=== PATIENT | female | born 1980 | race Caucasian/White ===

== ENCOUNTER 2018-01-20 18:54 | Emergency (ER) | payer MEDICAID ==
[~2018-01-20 18:54] MED LIST: ACET-1966 PO; BEN100 PO; DOXY150T6 PO; HYDR-3083 PO; IBUP-56 PO; IBUP800T37 PO; LOR5/325 PO; MULT-1335; ONDA4TAB PO; OXYC-865 PO; PRE20 PO; PRED-314 PO
[2018-01-20] MEDS ORDERED: NS(*) 0.9% 1000 ML BAG 1,000 ML IV ONE (19:13)
[2018-01-20] MEDS ORDERED: MORPHINE 2 MG/ML SYR IVP ONE (19:15)
[2018-01-20] MEDS ORDERED: ONDANSETRON 4 MG/2 ML VIAL IVP ONE (19:15)
[2018-01-20 19:26] LABS: PLATELET COUNT, AUTOMATED 279 K/uL (150-450)
[2018-01-20] MEDS ORDERED: IOPAMIDOL 76% 75 ML INFUS BTL 75 ML ONE (19:35)
--- NOTE | 2018-01-20 19:53 | RADIOLOGY IMAGING REPORT ---
FACILITY: [facility] - [place] PATIENT NAME: Armida Thrasher : 1980 MR: [id number] V: [id number] EXAM DATE: ORDERING PHYSICIAN: VERITO MERRITT TECHNOLOGIST: Location: [facility] Patient: Armdia Thrasher : 1980 Visit/Account:[id number] Date of Sevice: 01/20/2018 2 VIEWS CHEST INDICATION: Chest and abdomen pain COMPARISON: 10/19/2011. FINDINGS: Cardiomediastinal silhouette and pulmonary vessels within normal limits. There is no focal infiltrate or lobar consolidation. There is no pneumothorax or pleural effusion. No nodule. Upper abdomen is unremarkable. No acute bony abnormality. IMPRESSION: 1. No acute cardiopulmonary process. Report Dictated By: Anthony Benitez at 01/20/2018 7:47 PM Report E-Signed By: Anthony Benitez at 01/20/2018 7:49 PM WSN:[id number]
--- NOTE | 2018-01-20 20:12 | ER Report ---
History and Physical Time Seen By MD: 19:05 Hx. of Stated Complaint: LEFT SIDED CHEST PAIN FOR 2 DAYS HPI/ROS CHIEF COMPLAINT: Chest pain HISTORY OF PRESENT ILLNESS: 37-year-old female patient presents to emergency room with complaint of left-sided chest pain. Patient states this been going on for the last 2 days. Patient states that she was sleeping and woke up with pain in the left side of the chest. She states pain is worse when she takes a deep breath. She states she's not had any fevers, chills, vomiting or diarrhea. Patient states she has been nauseated. Patient states that she has not taken any medication for this. She states that there is nothing seems to make the pain better or worse. She states that she does not have any shortness of breath. REVIEW OF SYSTEMS: Respiratory: No cough, no dyspnea. Cardiovascular: As noted above. Gastrointestinal: No vomiting, no abdominal pain. Musculoskeletal: No back pain. Allergies: Coded Allergies: amoxicillin (Unverified Allergy, Mild, hives, 01/20/18) okay with cephalosporins latex (Unverified Allergy, Mild, rash, 01/20/18) Home Meds Active Scripts Hydrocodone Bit/Acetaminophen (HYDROCODON-ACETAMINOPHEN 5-325) 1 Each Tablet, 1 EACH PO Q4-6H PRN for PAIN, #12 TAB Prov:VERITO MERRITT 01/20/18 Discontinued Reported Medications Ibuprofen (IBUPROFEN) 200 Mg Tablet, 1 TAB PO PRN, TAB 09/29/16 Acetaminophen (TYLENOL) 325 Mg Tablet, 325 MG PO PRN, TAB 09/29/16 Discontinued Scripts Ondansetron (ZOFRAN ODT) 4 Mg Tab.rapdis, 4 MG PO Q6H PRN for NAUSEA/VOMITING, #20 TAB.[place] 0 Refills Prov:ASIA DONAHUE MD 12/23/16 Hydrocodone Bit/Acetaminophen (HYDROCODON-ACETAMINOPHEN 5-325) 1 Each Tablet, 1 EACH PO Q4H PRN for PAIN, #12 TAB 0 Refills Prov:ASIA DONAHUE MD 12/23/16 Past Medical/Surgical History Patient has a past medical history of smoking, precancerous lesions removed from cervix, left arm fracture, or alcohol use. Patient has surgical history of hysterectomy, tubal ligation. Reviewed Nurses Notes: Yes Hx Smoking: Yes (1ppd x 12 yrs, trying to quit) Smoking Status: Current: Every Day Smoker Hx Substance Use Disorder: No Hx Alcohol Use: Yes (rare 3 x yr) Constitutional Vital Sign - Last 24 Hours 01/20/18 01/20/18 01/20/18 01/20/18 18:56 18:57 19:00 19:09 Temp 97.9 Pulse 98 94 Resp 20 9 B/P (MAP) 181/106 (131) 181/106 158/100 (119) Pulse Ox 95 O2 Delivery Room Air 01/20/18 01/20/18 01/20/18 01/20/18 19:15 19:24 19:30 19:45 Pulse 84 Resp 11 B/P (MAP) 127/102 (110) 132/94 (107) 146/96 (113) Pulse Ox 95 01/20/18 01/20/18 01/20/18 01/20/18 19:50 20:05 20:20 20:30 Pulse 100 95 97 Resp 9 12 16 B/P (MAP) 126/80 (95) Pulse Ox 92 94 92 01/20/18 20:50 Pulse 82 Resp 24 Pulse Ox 93 Physical Exam General Appearance: The patient is alert, has no immediate need for airway protection and no current signs of toxicity. Respiratory: Chest is non tender, lungs are clear to auscultation. Cardiac: regular rate and rhythm Gastrointestinal: Abdomen is soft and tender in the left upper quadrant, no masses, bowel sounds normal. Musculoskeletal: Neck: Neck is supple and non tender. Extremities have full range of motion and are non tender. Skin: No rashes or lesions. DIFFERENTIAL DIAGNOSIS: After history and physical exam differential diagnosis was considered for abdominal pain including but not limited to appendicitis, cholecystitis, gastritis and urinary tract infection. Medical Decision Making Data Points Result Diagram: 01/20/18190901/20/181909 Laboratory Hematology Test 01/20/18 19:10 01/20/18 20:00 Red Blood Count 5.14 M/uL (4.17-5.56) Mean Corpuscular Volume 91.3 fL (80.0-96.0) Mean Corpuscular Hemoglobin 32.5 pg (26.0-33.0) Mean Corpuscular Hemoglobin Concent 35.6 g/dL (32.0-36.0) Red Cell Distribution Width 13.5 % (11.5-14.5) Mean Platelet Volume 9.2 fL (7.2-11.1) Neutrophils (%) (Auto) 51.3 % (39.4-72.5) Lymphocytes (%) (Auto) 37.5 % (17.6-49.6) Monocytes (%) (Auto) 8.0 % (4.1-12.4) Eosinophils (%) (Auto) 2.0 % (0.4-6.7) Basophils (%) (Auto) 1.2 % (0.3-1.4) Nucleated RBC Relative Count (auto) 0.0 /100WBC Neutrophils # (Auto) 7.0 K/uL (2.0-7.4) Lymphocytes # (Auto) 5.1 K/uL (1.3-3.6) Monocytes # (Auto) 1.1 K/uL (0.3-1.0) Eosinophils # (Auto) 0.3 K/uL (0.0-0.5) Basophils # (Auto) 0.2 K/uL (0.0-0.1) Nucleated RBC Absolute Count (auto) 0.01 K/uL Sodium Level 137 mmol/L (137-145) Potassium Level 3.9 mmol/L (3.5-5.0) Chloride Level 103 mmol/L (98-107) Carbon Dioxide Level 24 mmol/L (22-31) Blood Urea Nitrogen 13 mg/dl (7-18) Creatinine 0.60 mg/dl (0.52-1.04) Glomerular Filtration Rate Calc > 60.0 Random Glucose 88 mg/dl (75-110) Calcium Level 9.0 mg/dl (8.4-10.2) Total Bilirubin 0.6 mg/dl (0.2-1.3) Aspartate Amino Transf (AST/SGOT) 32 U/L (0-35) Alanine Aminotransferase (ALT/SGPT) 39 U/L (0-56) Alkaline Phosphatase 64 U/L (0-126) Troponin I < 0.012 ng/ml Total Protein 7.3 g/dl (6.3-8.2) Albumin 4.1 g/dl (3.5-5.0) Urine Color Yellow Urine Clarity Clear Urine pH 5.0 pH (4.8-9.5) Urine Specific [place] 1.034 Urine Protein Negative mg/dL (NEGATIVE) Urine Glucose (UA) Negative mg/dL (NEGATIVE) Urine Ketones Negative mg/dL (NEGATIVE) Urine Blood Negative (NEGATIVE) Urine Nitrite Negative (NEGATIVE) Urine Bilirubin Negative (NEGATIVE) Urine Urobilinogen Negative mg/dL (0.2-1.9) Urine Leukocyte Esterase Negative (NEGATIVE) Urine RBC None /HPF (0-2/HPF) Urine WBC <1 /HPF (0-5/HPF) Urine Squamous Epithelial Cells Many /LPF (</=FEW) Urine Bacteria Negative /HPF (NONE-FEW) Urine Mucus None /HPF (NONE-FEW) Chemistry Test 01/20/18 19:10 01/20/18 20:00 White Blood Count 13.6 k/uL (4.5-11.0) Red Blood Count 5.14 M/uL (4.17-5.56) Hemoglobin 16.7 g/dL (12.0-16.0) Hematocrit 46.9 % (34.0-47.0) Mean Corpuscular Volume 91.3 fL (80.0-96.0) Mean Corpuscular Hemoglobin 32.5 pg (26.0-33.0) Mean Corpuscular Hemoglobin Concent 35.6 g/dL (32.0-36.0) Red Cell Distribution Width 13.5 % (11.5-14.5) Platelet Count 279 K/uL (150-450) Mean Platelet Volume 9.2 fL (7.2-11.1) Neutrophils (%) (Auto) 51.3 % (39.4-72.5) Lymphocytes (%) (Auto) 37.5 % (17.6-49.6) Monocytes (%) (Auto) 8.0 % (4.1-12.4) Eosinophils (%) (Auto) 2.0 % (0.4-6.7) Basophils (%) (Auto) 1.2 % (0.3-1.4) Nucleated RBC Relative Count (auto) 0.0 /100WBC Neutrophils # (Auto) 7.0 K/uL (2.0-7.4) Lymphocytes # (Auto) 5.1 K/uL (1.3-3.6) Monocytes # (Auto) 1.1 K/uL (0.3-1.0) Eosinophils # (Auto) 0.3 K/uL (0.0-0.5) Basophils # (Auto) 0.2 K/uL (0.0-0.1) Nucleated RBC Absolute Count (auto) 0.01 K/uL Glomerular Filtration Rate Calc > 60.0 Calcium Level 9.0 mg/dl (8.4-10.2) Total Bilirubin 0.6 mg/dl (0.2-1.3) Aspartate Amino Transf (AST/SGOT) 32 U/L (0-35) Alanine Aminotransferase (ALT/SGPT) 39 U/L (0-56) Alkaline Phosphatase 64 U/L (0-126) Troponin I < 0.012 ng/ml Total Protein 7.3 g/dl (6.3-8.2) Albumin 4.1 g/dl (3.5-5.0) Urine Color Yellow Urine Clarity Clear Urine pH 5.0 pH (4.8-9.5) Urine Specific [place] 1.034 Urine Protein Negative mg/dL (NEGATIVE) Urine Glucose (UA) Negative mg/dL (NEGATIVE) Urine Ketones Negative mg/dL (NEGATIVE) Urine Blood Negative (NEGATIVE) Urine Nitrite Negative (NEGATIVE) Urine Bilirubin Negative (NEGATIVE) Urine Urobilinogen Negative mg/dL (0.2-1.9) Urine Leukocyte Esterase Negative (NEGATIVE) Urine RBC None /HPF (0-2/HPF) Urine WBC <1 /HPF (0-5/HPF) Urine Squamous Epithelial Cells Many /LPF (</=FEW) Urine Bacteria Negative /HPF (NONE-FEW) Urine Mucus None /HPF (NONE-FEW) Urinalysis Test 01/20/18 20:00 Urine Color Yellow Urine Clarity Clear Urine pH 5.0 pH (4.8-9.5) Urine Specific [place] 1.034 Urine Protein Negative mg/dL (NEGATIVE) Urine Glucose (UA) Negative mg/dL (NEGATIVE) Urine Ketones Negative mg/dL (NEGATIVE) Urine Blood Negative (NEGATIVE) Urine Nitrite Negative (NEGATIVE) Urine Bilirubin Negative (NEGATIVE) Urine Urobilinogen Negative mg/dL (0.2-1.9) Urine Leukocyte Esterase Negative (NEGATIVE) Urine RBC None /HPF (0-2/HPF) Urine WBC <1 /HPF (0-5/HPF) Urine Squamous Epithelial Cells Many /LPF (</=FEW) Urine Bacteria Negative /HPF (NONE-FEW) Urine Mucus None /HPF (NONE-FEW) EKG/Imaging EKG Interpretation 12 lead EKG: Rhythm: normal sinus rhythm with ventricular rate of 83 beats for minute [place]: normal QRS: normal ST segments: normal Imaging ABDOMEN/PELVIS WITH CONTRAST HISTORY: Abdominal and chest pain. COMPARISON: None. TECHNIQUE: Axial images were obtained from the lung bases through the symphysis pubis with intravenous contrast. Sagittal and coronal reformats were performed. One of the following dose optimization techniques was utilized in the performance of this exam: Automated exposure control; adjustment of the mA and/or kV according to the patient's size; or use of an iterative reconstruction technique. Specific details can be referenced in the facility's radiology CT exam operational policy. CONTRAST: 75 mL IV Isovue-370. FINDINGS: Lower chest: Normal. Liver: Liver is diffusely decreased in attenuation and enlarged, measuring 21.5 cm, compatible with hepatic steatosis. Gallbladder/biliary: There are partially calcified stones within the gallbladder. Gallbladder is contracted. No pericholecystic fluid or stranding. No intrahepatic or extrahepatic ductal dilation. Pancreas: Normal. Spleen: Normal. Adrenals: There is a 1.2 x 1.0 cm left adrenal lesion (image 42 series 2). The right adrenal gland is normal. Kidneys/ureters/bladder: Normal. GI/mesentery/peritoneal cavity: There is no bowel obstruction. There is no wall thickening or pericolonic stranding. The appendix is normal. There is sigmoid and descending colon diverticulosis without diverticulitis. Vessels: There is mild atherosclerotic disease without aneurysm. No dissection. Nodes: Normal. Pelvis: Uterus is absent. Left ovary is not identified and may be surgically absent. Right ovary is normal and contains a dominant follicle. There are phleboliths. Bones/vertebra/soft tissues: There is mild wedging of T11, likely physiologic. There is mild degenerative change of the spine. There is right central disc osteophyte at T11-12 (image 36) that is mildly deforming the right ventral thecal sac. There are numerous Schmorl nodes. No listhesis. IMPRESSION: 1. Cholelithiasis, but no CT evidence for cholecystitis. 2. Hepatic steatosis. It can progress to steatohepatitis and eventual cirrhosis. 3. Mild atherosclerosis, advanced for age. 4. Degenerative changes of the spine. 5. 1.2 cm left adrenal lesion given size and no reported history of cancer, it is probably benign. Consider 12 month follow up adrenal CT scan. Report Dictated By: Mariia Nobles at 01/20/2018 8:11 PM Report E-Signed By: Mariia Nobles at 01/20/2018 8:23 PM 2 VIEWS CHEST INDICATION: Chest and abdomen pain COMPARISON: 10/19/2011. FINDINGS: Cardiomediastinal silhouette and pulmonary vessels within normal limits. There is no focal infiltrate or lobar consolidation. There is no pneumothorax or pleural effusion. No nodule. Upper abdomen is unremarkable. No acute bony abnormality. IMPRESSION: 1. No acute cardiopulmonary process. Report Dictated By: Anthony Benitez at 01/20/2018 7:47 PM Report E-Signed By: Anthony Benitez at 01/20/2018 7:49 PM ED Course/Re-evaluation ED Course Patient was admitted to exam room, history and physical were obtained. The differential diagnoses were considered. On examination patient had tenderness to the left upper quadrant of the abdomen, no tenderness to the ribs or chest. A CBC, CMP, troponin, EKG, chest x-ray, CT scan of abdomen and pelvis were done. The patient had a slightly elevated white count with a left shift, 13,000. Patient is afebrile emergency room. EKG was a normal sinus rhythm, chest x-ray was negative, CT scan showed no acute findings. CMP was unremarkable. I discussed the findings with the patient. I did reexamine her looking for any signs of a herpetic rash. However there is nothing that was visible. We will go ahead and discharge patient home at this time. We'll treat her with lumbar spine pain medication. She is follow-up with her primary care provider in the next week. I discussed this with patient who verbalized understanding and agreement with plan. Decision to Disposition Date: Jan 20, 2018 Decision to Disposition Time: 21:04 Depart Departure Latest Vital Signs Vital Signs Date Time Temp Pulse Resp B/P (MAP) Pulse Ox O2 Delivery O2 Flow Rate FiO2 01/20/18 20:50 82 24 93 01/20/18 20:30 126/80 (95) 01/20/18 18:57 97.9 Room Air Impression: Primary Impression: Abdominal pain Condition: Improved Disposition: HOME OR SELF-CARE New Scripts Hydrocodone Bit/Acetaminophen (HYDROCODON-ACETAMINOPHEN 5-325) 1 Each Tablet 1 EACH PO Q4-6H PRN for PAIN, #12 TAB Prov: VERITO MERRITT 01/20/18 Patient Instructions: Abdominal Pain (ED) Additional Instructions: Limit activity by pain. Increase fluid intake. Follow up with your primary care provider in the next week. Return to the ER if pain worsens. Problem Qualifiers Primary Impression: Abdominal pain Abdominal location: left upper quadrant Qualified Codes: R10.12 - Left upper quadrant pain VERITO MERRITT Jan 20, 2018 20:12
--- NOTE | 2018-01-20 20:14 | EKG ---
FACILITY: [facility] PATIENT NAME: HAROLDO OVERTON : [id number] MR: [id number] V: [id number] EXAM DATE: ORDERING PHYSICIAN: VERITO MERRITT TECHNOLOGIST: JAMEL Stroud Reason : Blood Pressure : / mmHG Vent. Rate : 083 BPM Atrial Rate : 083 BPM P-R Int : 162 ms QRS Dur : 088 ms QT Int : 402 ms P-R-T Axes : 048 038 045 degrees QTc Int : 472 ms Normal sinus rhythm Normal ECG No previous ECGs available Confirmed by Oswald Shepherd ([id number] on 01/20/2018 8:14:46 PM Referred By: Confirmed By:Oswald Cochran
--- NOTE | 2018-01-20 20:26 | RADIOLOGY IMAGING REPORT ---
FACILITY: [facility] PATIENT NAME: Armida Thrasher : 1980 MR: [id number] V: [id number] EXAM DATE: ORDERING PHYSICIAN: VERITO MERRITT TECHNOLOGIST: Location: [facility] - [place] Patient: Armida Thrasher : 1980 Visit/Account:[id number] Date of Sevice: 01/20/2018 ABDOMEN/PELVIS WITH CONTRAST HISTORY: Abdominal and chest pain. COMPARISON: None. TECHNIQUE: Axial images were obtained from the lung bases through the symphysis pubis with intravenou s contrast. Sagittal and coronal reformats were performed. One of the following dose optimization techniques was utilized in the performance of this exam: Autom ated exposure control; adjustment of the mA and/or kV according to the patient's size; or use of an i terative reconstruction technique. Specific details can be referenced in the facility's radiology CT exam operational policy. CONTRAST: 75 mL IV Isovue-370. FINDINGS: Lower chest: Normal. Liver: Liver is diffusely decreased in attenuation and enlarged, measuring 21.5 cm, compatible with h epatic steatosis. Gallbladder/biliary: There are partially calcified stones within the gallbladder. Gallbladder is cont racted. No pericholecystic fluid or stranding. No intrahepatic or extrahepatic ductal dilation. Pancreas: Normal. Spleen: Normal. Adrenals: There is a 1.2 x 1.0 cm left adrenal lesion (image 42 series 2). The right adrenal gland is normal. Kidneys/ureters/bladder: Normal. GI/mesentery/peritoneal cavity: There is no bowel obstruction. There is no wall thickening or pericol onic stranding. The appendix is normal. There is sigmoid and descending colon diverticulosis without diverticulitis. Vessels: There is mild atherosclerotic disease without aneurysm. No dissection. Nodes: Normal. Pelvis: Uterus is absent. Left ovary is not identified and may be surgically absent. Right ovary is n ormal and contains a dominant follicle. There are phleboliths. Bones/vertebra/soft tissues: There is mild wedging of T11, likely physiologic. There is mild degenera tive change of the spine. There is right central disc osteophyte at T11-12 (image 36) that is mildly deforming the right ventral thecal sac. There are numerous Schmorl nodes. No listhesis. IMPRESSION: 1. Cholelithiasis, but no CT evidence for cholecystitis. 2. Hepatic steatosis. It can progress to steatohepatitis and eventual cirrhosis. 3. Mild atherosclerosis, advanced for age. 4. Degenerative changes of the spine. 5. 1.2 cm left adrenal lesion given size and no reported history of cancer, it is probably benign. Co nsider 12 month follow up adrenal CT scan. Report Dictated By: Mariia Nobles at 01/20/2018 8:11 PM Report E-Signed By: Mariia Nobles at 01/20/2018 8:23 PM WSN:[id number]
[2018-01-20 20:30] VITALS: BP 126/80
[2018-01-20] MEDS ORDERED: HYDR-385 PO (21:01)
[2018-01-20] MEDS ORDERED: ACET/HYDROC 5/325MG TH ER ONLY 2 TAB/BOTTLE PO ONE (21:05)
== END 2018-01-20 21:16 | disposition home or self-care (01) ==
LOC: ER 18:58
DX: R10.12 Left upper quadrant pain (principal)
CPT/HCPCS: 71046; 74177; 81001; 84484; 85025; 93005; 96361; 96374; 96375; 99284; J2270; J2405; J7030; Q9967; 82040; 82247; 82310; 82374; 82435; 82565; 82947; 84075; 84132; 84155; 84295; 84450; 84460; 84520

== ENCOUNTER → 2018-01-24 | Outpatient (REF) | payer MEDICAID ==
[~2018-01-24] MED LIST changes: +HYDR-385 PO
== END ==
LOC: ZZSENDIN 16:04
PROVIDERS: ATTEND Physician Assistant Medical
DX: R10.817 Generalized abdominal tenderness (principal)
CPT/HCPCS: 83690

== ENCOUNTER → 2018-02-04 | Outpatient (CLI) | payer MEDICAID ==
[~2018-02-04] VITALS: Ht 167.6 cm; Wt 80.7 kg
[~2018-02-04] MED LIST changes: +ACET500T68 PO; +BARIUM SULFATE 176 GM BTL PO ONE; +BARIUM SULFATE 340 GM POWD ONE; +DEXL30CA5 PO; +GEMF600T92 PO
--- NOTE | 2018-02-04 12:09 | RADIOLOGY IMAGING REPORT ---
FACILITY: [facility] PATIENT NAME: Armida Thrasher : 1980 MR: [id number] V: [id number] EXAM DATE: ORDERING PHYSICIAN: CHRISSIE NUR TECHNOLOGIST: Location: [facility] - [place] Patient: Armida Thrasher : 1980 Visit/Account:[id number] Date of Sevice: 02/04/2018 Exam type: UPPER GI SERIES W/O AIR History: Postprandial vomiting and reflux Comparison: None. Findings: Double contrast upper GI series was performed with thick and thin barium and air contrast. Small to moderate amount of gastroesophageal reflux was observed. There is no evidence of esophageal narrowin g or mucosal erosions. Hiatal hernia was not demonstrated. No abnormality of the stomach duodenal b ulb or duodenal C-loop was seen. The fluoroscopy dose area product was 1107.67 micro-Rahman per meter squared IMPRESSION: 1. Small to moderate amount of gastroesophageal reflux was observed although no evidence of esophage al narrowing or mucosal erosion The remainder the upper GI series appeared unremarkable Report Dictated By: Corinne Perez MD at 02/04/2018 12:03 PM Report E-Signed By: Corinne Perez MD at 02/04/2018 12:05 PM WSN:[id number]
== END ==
LOC: RAD 06:52
PROVIDERS: ATTEND Surgery
DX: K21.9 Gastro-esophageal reflux disease without esophagitis (principal)
CPT/HCPCS: 74240

== ENCOUNTER 2018-02-15 00:07 | Day surgery (SDC) | payer MEDICAID ==
[2018-02-15] VITALS (7 sets, daily range): BP systolic 100–127; BP diastolic 63–87
[~2018-02-15] VITALS: Ht 167.6 cm; Wt 80.3 kg
[~2018-02-15 00:07] MED LIST changes: -BARIUM SULFATE 176 GM BTL PO ONE; -BARIUM SULFATE 340 GM POWD ONE
[2018-02-15] MEDS ORDERED: LIDOCAINE/SOD BICARB 8.4% SYR ID ONE (06:30)
[2018-02-15] MEDS ORDERED: LEVOFLOXACIN/D5W*500 MG/100 ML 100 ML IVPB ONE (06:30)
[2018-02-15] MEDS ORDERED: ACETAMINOPHEN 500 MG TAB PO ONE (06:30)
[2018-02-15] MEDS ORDERED: metroNIDAZOLE* 500MG/100ML BAG 100 ML IVPB ONE (06:30)
[2018-02-15] MEDS ORDERED: NORMOSOL R SOLN(*) 1000 ML BAG 1,000 ML IV PRN (06:30)
[2018-02-15] MEDS ORDERED: MIDAZOLAM 2 MG/2 ML VIAL IVP PRN (06:30)
[2018-02-15] MEDS ORDERED: PREGABALIN 150 MG CAPSULE PO ONE (06:30)
[2018-02-15] MEDS ORDERED: FAMOTIDINE 20 MG TAB PO ONE (06:30)
[2018-02-15] MEDS ORDERED: ONDANSETRON 4 MG/2 ML VIAL ONE (06:52)
[2018-02-15] MEDS ORDERED: fentaNYL CITR 250 MCG/5 ML AMP ONE (06:52)
[2018-02-15] MEDS ORDERED: LIDOCAINE MPF 1% 5 ML VIAL ONE (06:52)
[2018-02-15] MEDS ORDERED: PROPOFOL EMUL(*) 10MG/ML 20 ML 20 ML ONE (06:52)
[2018-02-15] MEDS ORDERED: DEXAMETHASONE SOD PHOS 10MG/ML ONE (06:52)
[2018-02-15] MEDS ORDERED: ROPIVACAINE 0.5% 20 ML VIAL ONE (06:54)
[2018-02-15] MEDS ORDERED: HALOPERIDOL LACT 5 MG/ML VIAL IM ONE (07:04)
[2018-02-15] MEDS ORDERED: ROCURONIUM BROM 10 MG/ML 10 ML ONE (07:30)
[2018-02-15] MEDS ORDERED: INDOCYANINE GREEN 25 MG VIAL IVP ONE (07:33)
[2018-02-15] MEDS ORDERED: NS(*) 0.9% 10 ML VIAL 0 ML ONE (07:33)
[2018-02-15] MEDS ORDERED: PHENYLEPHRINE 10 MG/1 ML VIAL ONE (07:34)
[2018-02-15] MEDS ORDERED: ESMOLOL 10 MG/ML 10ML SDV ONE (07:35)
[2018-02-15] MEDS ORDERED: VASOPRESSIN 20 UNIT/ML VIAL ONE (08:08)
[2018-02-15] MEDS ORDERED: SUGAMMADEX SOD 200 MG/2 ML SDV ONE (08:24)
[2018-02-15] MEDS ORDERED: NORMOSOL R SOLN(*) 1000 ML BAG 1,000 ML IV ONE (08:55)
[2018-02-15] MEDS ORDERED: ALBUTEROL/IPRATROPIUM 3 ML NEB ONE (08:58)
[2018-02-15] MEDS ORDERED: OXYC-854 PO (09:00)
[2018-02-15] MEDS ORDERED: DOCU-416 PO (09:00)
--- NOTE | 2018-02-15 09:03 | Short(Outpt) Discharge Summary ---
Discharge Summary Reason for Hosp/Final Diag: (1) Postprandial vomiting Status: Chronic Hospital Course & Plan: EGD with biopsies and robotic cholecystectomy completed without problems. (2) Cholelithiasis Status: Chronic (3) Abdominal pain Status: Acute Departure Discharge to: Home, Self Care Discharge Instructions Home Meds Active Scripts Docusate Sodium (COLACE) 100 Mg Capsule, 1 CAP PO BID, #30 CAP 0 Refills TAKE WITH A FULL GLASS OF WATER Prov:CHRISSIE NUR MD 02/15/18 Oxycodone Hcl/Acet 5/325 Mg (ENDOCET 5-325 TABLET) 1 Each Tablet, 1-2 TAB PO Q4H PRN for PAIN, #30 TAB 0 Refills Prov:CHRISSIE NUR MD 02/15/18 Reported Medications Acetaminophen (TYLENOL EXTRA STRENGTH) 500 Mg Tablet, 1000 MG PO, TAB 02/04/18 Gemfibrozil (GEMFIBROZIL) 600 Mg Tablet, 600 MG PO BID 02/04/18 Dexlansoprazole (DEXILANT) Unknown Strength Cap., 60 MG PO HS 02/04/18 Follow up Referrals: General Surgery - 03/01/18 @ Surgery, General with CHRISSIE NUR MD You have a follow up appointment scheduled with Dr. Nur on 03/01/18, at 3:30pm. Diet: Regular Activity: As Tolerated Special Instructions: You may remove the white surgical dressings on , 02/17/18, then you can shower. After showering, leave the incisions open to air but leave the steristrips in place until they fall off on their own. Do not immerse the incisions for 2 weeks. Problem Qualifiers (1) Cholelithiasis: Cholelithiasis location: gallbladder Cholecystitis presence: without cholecystitis Biliary obstruction: without biliary obstruction Qualified Codes: K80.20 - Calculus of gallbladder without cholecystitis without obstruction (2) Abdominal pain: Abdominal location: upper abdomen, unspecified Qualified Codes: R10.10 - Up per abdominal pain, unspecified CHRISSIE NUR MD Feb 15, 2018 09:03
[2018-02-15] MEDS ORDERED: fentaNYL CITR 100 MCG/2 ML AMP ONE (09:07)
--- NOTE | 2018-02-15 09:12 | Post Operative Progress Note ---
Post Operative Progress Note Date: Feb 15, 2018 Time: 09:03 Surgeon: Luis Dictation number: [id number] Anesthesia: GETA by Dr. Gomes Pre-Op Diagnosis: Symptomatic gallstones Postprandial emesis Upper abdominal pain Post-Op Diagnosis: GISSELLE Findings: Normal EGD, biopsies pending Procedure(s): EGD with biopsies Robotic cholecystectomy Specimen Removed:(May be N/A): Duodenum Pyloritek Gallbladder and contents Complications: None Fluids: See anesthesia record Estimated Blood Loss: Minimal Date OP Note Dictated: Feb 15, 2018 Time OP Note Dictated: 09:05 CHRISSIE NUR MD Feb 15, 2018 09:12
--- NOTE | 2018-02-15 13:55 | OPERATIVE REPORT 1 ---
EVENT DATE: February 15, 2018 SURGEON: Carlos Smith M.D. ANESTHESIOLOGIST: Marques Gomes MD ANESTHESIA: General endotracheal. PREOPERATIVE DIAGNOSIS 1. Upper abdominal pain. 2. Postprandial emesis. 3. Symptomatic gallstones. POSTOPERATIVE DIAGNOSIS 1. Upper abdominal pain. 2. Postprandial emesis. 3. Symptomatic gallstones. PROCEDURE PERFORMED 1. Esophagogastroduodenoscopy with biopsies. Please refer to the endoscopy report for details about this. 2. Robotic cholecystectomy. ESTIMATED BLOOD LOSS Minimal. FINDINGS Patient's EGD was unremarkable. I did not find any evidence of inflammation, ulcers or other abnormalities. Biopsies are pending. The gallbladder had small flecks of gallstones in it but no obvious gross inflammation. SPECIMENS 1. Duodenal biopsy. 2. PyloriTek. 3. Gallbladder and contents. INDICATIONS This is a 37-year-old female who presented to my office with upper abdominal pain and postprandial emesis. Her pain was somewhat in the epigastric midline as well as the right upper quadrant. There was concern about an upper GI cause separate from her gallbladder so she was requesting to have an EGD in addition to having her gallbladder removed since her ultrasound did show gallstones. DESCRIPTION OF PROCEDURE The patient was brought to the operating room and placed supine on the operating table. General endotracheal anesthesia was administered and we completed the EGD first. Please refer to the endoscopy report for details about this. After the EGD was completed, her abdomen was prepped and draped in the sterile fashion. Another time-out was completed. I injected the infraumbilical skin with 0.5% ropivacaine plain. I made a curvilinear smiley face type incision in the infraumbilical rim and dissected through the dermis and into the subcutaneous fat. I identified the midline fascia, made a vertical incision in the midline fascia, grasped the fascial ligatures with Lc clamps and retracted the abdominal wall towards the ceiling to move it away from the underlying viscera. I then was able to penetrate the peritoneal cavity with my finger and then placed two interrupted 0 Vicryl sutures transversely through the vertical fascial defect and the 12 mm robotic Herbert type port though this wound and secured into place with the sutures. I insufflated the abdomen to a pressure of 50 mmHg and inserted the robotic camera into the patient's abdomen. Gross inspection of the abdominal cavity did not reveal any obvious evidence of gross pathology or entry related injuries. Next, I placed an 8 mm robotic port in the right mid abdomen and two 8 mm robotic ports in the left side of the abdomen, one in the left mid abdomen higher than the level of the umbilicus and then one in the anterior axillary line in the subcostal area. I placed the patient in reverse Trendelenburg and planed towards the left and moved the viscera away from the right upper quadrant and brought the robot in and docked and targeted the robot. I then inserted the instruments under direct visualization and when everything was set up I scrubbed out and went to the console. I grasped the fundus of the gallbladder and retracted it with a ProGrasp grasper and there were some adhesions of the gallbladder, which I easily took down by retracting them with the caudia and using the hook. Once I got down to the infundibulum, I divided the peritoneum overlying the infundibulum in both the medial and lateral aspects of the gallbladder and stripped the peritoneum and subperitoneal contents down from the infundibulum until I cleaned off the cystic duct. I used the FireFly to identify the cystic duct and I could also clearly see the common bile duct, which glowed brightly, and I was well away from the common bile duct. Once I cleaned off the cystic duct circumferentially, I passed three clips distally and one clip at the infundibulum of the cystic duct and divided the duct between clips. I then continued dissecting and I had not yet identified the artery so I was very careful in this regard and then I ultimately was able to identify the cystic artery, which was very posterior, so this was cleaned off circumferentially and I clipped it proximally and distally and divided between clips. I then the posterior attachments of the gallbladder to separate from the gallbladder fossa and then placed the gallbladder in a surgical specimen retrieval bag and removed it from the abdomen through the umbilical port site. I irrigated and dried the right upper quadrant and made sure there was no bile leaks or bleeding and there was none. The clips were all in good position and the gallbladder fossa was dry. I then removed all the instruments and undocked the robot and then placed a [id number] 0 Vicryl suture transversely through the defect in the umbilicus and tied all three of these down with good reapproximation of the fascial edges. I then closed the skin at each portal site with 4-0 Monocryl subcuticular sutures. Skin was cleaned and dried and steri-strips applied followed by sterile surgical dressings. The patient was awakened and extubated in the operating room and transferred to the recovery room in stable condition, having tolerated the procedure without any apparent problems. ROSITA
[2018-02-16] MEDS ORDERED: ONDA4TAB PO (15:45)
== END 2018-02-15 10:00 | disposition home or self-care (01) ==
LOC: OR 00:07
PROVIDERS: ATTEND Surgery
DX: K80.80 Other cholelithiasis without obstruction (principal); R11.10 Vomiting, unspecified; R10.10 Upper abdominal pain, unspecified; J44.9 Chronic obstructive pulmonary disease, unspecified
CPT/HCPCS: 43239; 47562; 87077; 88304; 88305; 94640; J1100; J1630; J1956; J2001; J2250; J2370; J2405; J2704; J2795; J3010; J3490; J7620; S2900

== ENCOUNTER → 2018-03-01 | Outpatient (CLI) | payer MEDICAID ==
[~2018-03-01] MED LIST changes: +DOCU-416 PO; +OXYC-854 PO
[2018-03-01 16:12] LABS: PLATELET COUNT, AUTOMATED 283 K/uL (150-450)
== END ==
LOC: LAB 15:47
PROVIDERS: ATTEND Surgery
DX: R10.9 Unspecified abdominal pain (principal); R11.2 Nausea with vomiting, unspecified
CPT/HCPCS: 36415; 82040; 82247; 82248; 82310; 82374; 82435; 82565; 82947; 83690; 84075; 84132; 84155; 84295; 84450; 84460; 84520; 85025

== ENCOUNTER → 2018-03-07 | Outpatient (CLI) | payer MEDICAID ==
[~2018-03-07] MED LIST changes: +IOPAMIDOL 76% 75 ML INFUS BTL 75 ML ONE
--- NOTE | 2018-03-07 15:05 | RADIOLOGY IMAGING REPORT ---
FACILITY: [facility] [place] PATIENT NAME: Armida Thrasher : 1980 MR: [id number] V: [id number] EXAM DATE: ORDERING PHYSICIAN: CHRISSIE NUR TECHNOLOGIST: Location: [facility] Patient: Armida Thrasher : 1980 Visit/Account:[id number] Date of Sevice: 03/07/2018 ABDOMEN/PELVIS W/WO CONTRAST HISTORY: Generalized abdomen pain x3 months, cholecystectomy x3 weeks, nausea and vomiting TECHNIQUE: Axial images acquired through the abdomen/pelvis both with and without IV contrast.. Steve nal and sagittal reformatting also performed.Dose Lowering Technique One of the following dose optimization techniques was utilized in the performance of this exam: Autom ated exposure control; adjustment of the mA and/or kV according to the patient's size; or use of an i terative reconstruction technique. Specific details can be referenced in the facility's radiology C T exam operational policy. CONTRAST: 75 mL Isovue-370 COMPARISON: January 20, 2018 FINDINGS: Visualized lung bases: Negative. Hepatobiliary: There is diffuse hepatic steatosis. There are postsurgical changes from a cholecyste ctomy with no abnormal collections identified in the gallbladder fossa. There is no evidence of bili santa ductal dilatation Spleen: Negative. Adrenals: 1.2 cm left adrenal nodule remains relatively unchanged Pancreas: Negative. Kidneys ureters and bladder: Negative. Genitalia: Hysterectomy GI: There Is diverticulosis of the left-sided colon. There does appear to be mild thickening of the distal sigmoid colon, no surrounding inflammatory changes are seen although this may be related to mi ld diverticulitis. Vessels/spaces/nodes: Negative. Bones/soft tissues: Mild spondylotic changes in the thoracal lumbar spine again seen Additional findings: None pertinent. IMPRESSION: Diffuse hepatic steatosis Postsurgical changes from cholecystectomy with no abnormal collection identified in the gallbladder f bia 1.2 cm left adrenal nodule remains stable Diverticulosis left-sided colon. There does appear to be mild thickening of the distal sigmoid colon although no surrounding inflammatory change is seen. This could be related to mild diverticulitis. Report Dictated By: Corinne Perez MD at 03/07/2018 1:22 PM Report E-Signed By: Corinne Perez MD at 03/07/2018 3:01 PM WSN:[email or web address]
== END ==
LOC: CT 01:26
PROVIDERS: ATTEND Surgery
DX: K76.0 Fatty (change of) liver, not elsewhere classified (principal); Z90.49 Acquired absence of other specified parts of digestive tract; R19.09 Other intra-abdominal and pelvic swelling, mass and lump; K57.30 Diverticulosis of large intestine without perforation or abscess without bleeding
CPT/HCPCS: 74178; Q9967

== ENCOUNTER → 2018-05-16 | Outpatient (CLI) | payer MEDICAID ==
[~2018-05-16] MED LIST changes: -GEMF600T92 PO; +GEMF600T96 PO; -IOPAMIDOL 76% 75 ML INFUS BTL 75 ML ONE
== END ==
LOC: LAB 13:41
PROVIDERS: ATTEND Surgery
DX: R19.7 Diarrhea, unspecified (principal); R10.9 Unspecified abdominal pain
CPT/HCPCS: 87045; 87205

== ENCOUNTER → 2018-07-12 | Outpatient (CLI) | payer MEDICAID ==
[~2018-07-12] MED LIST changes: +DICY20TA70 PO; +ONDA4TAB9 PO
== END ==
LOC: LAB 08:00
PROVIDERS: ATTEND Urology
DX: N28.89 Other specified disorders of kidney and ureter (principal)
CPT/HCPCS: 36415; 82533; 83835

== ENCOUNTER → 2018-08-18 | Outpatient (CLI) | payer MEDICAID | LOC: LAB 15:19 | PROVIDERS: ATTEND Urology | DX: E27.9 Disorder of adrenal gland, unspecified (principal); D44.10 Neoplasm of uncertain behavior of unspecified adrenal gland | CPT/HCPCS: 36415; 82565 ==

== ENCOUNTER → 2018-08-23 | Outpatient (CLI) | payer MEDICAID ==
[~2018-08-23] MED LIST changes: +IOPAMIDOL 76% 150 ML INFUS BTL 150 ML ONE
--- NOTE | 2018-08-23 10:35 | RADIOLOGY IMAGING REPORT ---
FACILITY: [facility] [place] PATIENT NAME: Armida Thrasher : 1980 MR: [id number] V: [id number] EXAM DATE: ORDERING PHYSICIAN: EDD GRIGSBY TECHNOLOGIST: Location: [facility] Patient: Armida Thrasher : 1980 Visit/Account:[id number] Date of Sevice: 08/23/2018 CT ABDOMEN WITH AND WITHOUT CONTRAST CLINICAL INFORMATION: Nonfunctional left adrenal mass TECHNIQUE: Axial CT images were obtained through the abdomen before and after injection of nonionic iodinated intravenous contrast. Reformatted coronal and sagittal images were also obtained. Pre cont rast and delayed images were obtained. Dose Lowering Technique One of the following dose optimization techniques was utilized in the performance of this exam: Autom ated exposure control; adjustment of the mA and/or kV according to the patient's size; or use of an i terative reconstruction technique. Specific details can be referenced in the facility's radiology C T exam operational policy. CONTRAST: 75ml of IV Isovue-370 contrast. COMPARISON: March 07, 2018. FINDINGS: Lower lung steward: Limited views lower lung field are unremarkable. Liver: There is diffuse severe hepatic steatosis. There are post surgical changes from a cholecystec tony Biliary: Postsurgical changes from a cholecystectomy Pancreas: Normal appearance. Spleen: Normal appearance. Adrenal glands: The previously noted left adrenal mass appears slightly less prominent now measuring 1 cm opposed 1.2 cm. There is greater than 50% washout of contrast on the delayed images consistent with a benign adenoma. The right adrenal gland appears unremarkable Kidneys / retroperitoneum: No evidence of nephrolithiasis or hydronephrosis Bowel / peritoneum / mesenteries: The visualized small and large bowel appear unremarkable. Vessels: No significant atherosclerotic calcification seen throughout a nonaneurysmal abdominal aorta and branches. Musculoskeletal / Body wall: Mild spondylotic changes of the thoracolumbar spine Lymph node assessment: There shotty mesenteric and retroperitoneal lymph nodes IMPRESSION: 1. The previously noted left adrenal mass appears slightly less prominent. There is greater than 50 % washout of contrast on the delayed images consistent with a benign adenoma Additional chronic findings as described 2. 3. Report Dictated By: Corinne Perez MD at 08/23/2018 9:46 AM Report E-Signed By: Corinne Perez MD at 08/23/2018 10:31 AM WSN:[email or web address]
== END ==
LOC: CT 01:24
PROVIDERS: ATTEND Urology
DX: D44.10 Neoplasm of uncertain behavior of unspecified adrenal gland (principal); E27.9 Disorder of adrenal gland, unspecified
CPT/HCPCS: 74170; Q9967